=== PATIENT | male | born 1990 | race Caucasian/White ===

== ENCOUNTER 2016-12-24 14:30 | Emergency (ER) | payer MEDICAID, OTHER ==
[~2016-12-24] VITALS: Ht 172.7 cm; Wt 81.8 kg
[2016-12-24 14:36] VITALS: Ht 172.7 cm; Wt 81.8 kg
[2016-12-24] MEDS ORDERED: ONDANSETRON 4 MG INJ IV STA (14:42)
[2016-12-24] MEDS ORDERED: SOD CHLORIDE 0.9% 1,000 ML IV STA (14:42)
[2016-12-24] MEDS ORDERED: PHEN64.8 PO (14:53)
[2016-12-24 15:04] LABS: ADD SCAN DIFF NO
[2016-12-24 15:11] LABS: BASOPHILS % 0.5 % (0.0-2.0); EOSINOPHILS # 0.2 10^3/ul (0.0-0.5); EOSINOPHILS % 3.3 % (0.0-7.0); HEMATOCRIT 44.8 % (42.0-52.0); HEMOGLOBIN 15.5 g/dl (14.0-18.0); LYMPHOCYTES # 1.6 10^3/ul (0.8-2.9); MEAN CORPUSCULAR HEMOGLOBIN 30.9 pg (29.0-33.0); MEAN CORPUSCULAR HGB CONC 34.6 g/dl (32.0-37.0); MEAN CORPUSCULAR VOLUME 89.4 fl (82.0-101.0); MEAN PLATELET VOLUME 9.4 fl (7.4-10.4); MONOCYTE # 0.5 10^3/ul (0.3-0.9); MONOCYTES % 7.1 % (0.0-11.0); NEUTROPHIL # 4.1 10^3/ul (1.6-7.5); NEUTROPHILS % 63.8 % (39.0-77.0); PLATELET COUNT 299 10^3/UL (140-415); RED BLOOD COUNT 5.01 10^6/ul (4.70-6.10); RED CELL DISTRIBUTION WIDTH 12.8 % (11.5-14.5); WHITE BLOOD COUNT 6.4 10^3/ul (4.8-10.8)
[2016-12-24 15:27] LABS: ALBUMIN 4.4 g/dl (3.3-4.9)
[2016-12-24 15:28] LABS: CHLORIDE 104 mmol/L (97-110); POTASSIUM 3.6 mmol/L (3.5-5.1); SODIUM 144 mmol/L (135-144)
[2016-12-24 15:30] LABS: ANION GAP 21 (8-16); ASPARTATE AMINO TRANSFERASE 33 IU/L (15-46); BILIRUBIN,INDIRECT 0.1 mg/dl (0-1.1); BILIRUBIN,TOTAL 0.1 mg/dl (0.2-1.3); CARBON DIOXIDE 23 mmol/L (21-31); CREATININE 0.84 mg/dl (0.61-1.24)
[2016-12-24 15:31] LABS: ALANINE AMINOTRANSFERASE 29 IU/L (13-69); ALBUMIN/GLOBULIN RATIO 1.46; ALKALINE PHOSPHATASE 78 IU/L (42-121); BLOOD UREA NITROGEN 11 mg/dl (7-20); GLUCOSE 131 mg/dl (70-220); TOTAL PROTEIN 7.4 g/dl (6.1-8.1)
[2016-12-24 15:40] LABS: TROPONIN-I < 0.012 ng/ml (0.00-0.12)
--- NOTE | 2016-12-24 16:28 | RADRPT ---
PROCEDURE: CT Brain without contrast. CLINICAL INDICATION: Headaches status post head trauma TECHNIQUE: A CT of the brain was performed on a GE [employer] 64-slice CT scanner utilizing axial imaging from the skull base through the vertex without IV contrast. Multiplanar reformatted images were made. Images were reviewed on a PACS workstation. The CTDIvol is 45.01 mGy and the DLP is 720 .23 mGycm. One of the following 3 dose reduction techniques were used: Automated exposure control; adjustment of the mA and/or kV according to patient size; or use of iterative reconstruction technique. COMPARISON: None available FINDINGS: There is no intracranial hemorrhage, mass effect, or midline shift. No extra-axial fluid collection is seen. The ventricles and sulci are normal in size and configuration. The density of the brain is normal, and the pierce white matter differentiation appears well-preserved. The visualized scalp and calvarium are normal. The bilateral orbits are normal. The bilateral para nasal sinuses are remarkable for mild bilateral ethmoid and sphenoid sinus chronic mucosal thickenin g. IMPRESSION: 1. No evidence of acute intracranial infarcts, hemorrhage, or acute intracranial pathology. 2. Normal noncontrast head CT. RPTAT: HD .Juanita Olivas MD, Date Time Electronically viewed and signed by .Juanita Olivas MD, MD on 12/24/2016 16:27 .C/
[2016-12-24] MEDS ORDERED: KETOROLAC 15 MG INJ IV STA (17:09)
[2016-12-24] MEDS ORDERED: PHEN100C PO (17:16)
[2016-12-24] MEDS ORDERED: PHENYTOIN 100 MG CAP PO ONE (17:30)
[2016-12-24 18:22] VITALS: BP 124/74; PULSE 88; RESP 18
--- NOTE | 2016-12-24 19:56 | ERD ---
ER Documentation Chief Complaint Date/Time DATE: 12/24/16 TIME: 19:53 Chief Complaint BROUGHT IN VIA EMS DUE TO SEIZURE ACTIVITY HPI 26-year-old man brought in by EMS for tonic-clonic seizure. Patient has about 4 year history of seizure disorder and states he has been using phenytoin daily as prescribed, states yesterday he had another tonic-clonic seizure and injured his forehead. Patient states prior to yesterday's episode last seizure was 4 years ago. He has had no recent fevers or chills, no chest pain or shortness of breath, no loss of bowel or bladder control. Patient was postictal at the scene and required restraint was transported here without further complications. ROS All systems reviewed and are negative except as per history of present illness. Medications Home Meds Active Scripts Phenytoin* Sodium Extended (Dilantin*) 100 Mg Capsule, 100 MG PO BID, #60 CAP Prov:TOMAS BOSS MD 12/24/16 Reported Medications Phenobarbital* (Phenobarbital*) 64.8 Mg Tablet, 64.8 MG PO BID, TAB 12/24/16 Allergies Allergies: Coded Allergies: No Known Allergy (Unverified , 12/24/16) PMhx/Soc Seizure disorder Medical and Surgical Hx: pt denies Surgical Hx Hx Neurological Disorder: Yes (EPILEPSY) Hx Alcohol Use: No Hx Substance Use: No Hx Tobacco Use: No Smoking Status: Never smoker FmHx Family History: No diabetes Physical Exam Vitals Vital Signs Date Time Temp Pulse Resp B/P Pulse Ox O2 Delivery O2 Flow Rate FiO2 12/24/16 18:22 88 18 124/74 99 Room Air 12/24/16 17:00 92 18 130/79 99 Room Air 12/24/16 14:36 98.1 119 18 128/80 95 Physical Exam GENERAL: Well-developed, well-nourished, initially agitated and postictal HEENT: Positive forehead abrasion from yesterday's episode, no cervical spine tenderness or step-off deformities, no goiter, no jaundice or icterus, extraocular movements intact without pain. No submandibular induration, and no pharyngeal erythema NEURO: Alert and oriented 1, cranial nerves II through XII intact bilaterally, pupils equal round reactive to light, no focal deficits or facial asymmetry, sensation intact distally Strength 5/5 in upper and lower extremities bilaterally CARDIAC: Regular rate and rhythm, no murmurs rubs or gallops LUNGS: Clear bilaterally no wheezing crackles or stridor ABDOMEN: Soft nontender, no guarding, no rigidity, no rebound, no psoas sign no obturator sign. Normoactive bowel sounds SKIN: Warm and dry to touch, no abrasions, contusions, or hematomas, no lacerations, no ecchymosis, no target lesions, and without ulcers EXTREMITIES: No clubbing cyanosis or edema, calves are bilaterally symmetrical, no Homans sign, no popliteal cord sign. Distal pulses equal and bilateral PSYCH: Agitated Result Diagram: 12/24/16 1500 12/24/16 1500 Results 24 hrs Laboratory Tests Test 12/24/16 15:00 White Blood Count 6.410^3/ul Red Blood Count 5.0110^6/ul Hemoglobin 15.5g/dl Hematocrit 44.8% Mean Corpuscular Volume 89.4fl Mean Corpuscular Hemoglobin 30.9pg Mean Corpuscular Hemoglobin Concent 34.6g/dl Red Cell Distribution Width 12.8% Platelet Count 61057^3/UL Mean Platelet Volume 9.4fl Neutrophils % 63.8% Lymphocytes % 25.0% Monocytes % 7.1% Eosinophils % 3.3% Basophils % 0.5% Nucleated Red Blood Cells % 0.0/100WBC Neutrophils # 4.110^3/ul Lymphocytes # 1.610^3/ul Monocytes # 0.510^3/ul Eosinophils # 0.210^3/ul Basophils # 0.010^3/ul Nucleated Red Blood Cells # 0.010^3/ul Sodium Level 144mmol/L Potassium Level 3.6mmol/L Chloride Level 104mmol/L Carbon Dioxide Level 23mmol/L Anion Gap 21 Blood Urea Nitrogen 11mg/dl Creatinine 0.84mg/dl Glucose Level 131mg/dl Calcium Level 9.0mg/dl Total Bilirubin 0.1mg/dl Direct Bilirubin 0.00mg/dl Indirect Bilirubin 0.1mg/dl Aspartate Amino Transf (AST/SGOT) 33IU/L Alanine Aminotransferase (ALT/SGPT) 29IU/L Alkaline Phosphatase 78IU/L Troponin I < 0.012ng/ml Total Protein 7.4g/dl Albumin 4.4g/dl Globulin 3.00g/dl Albumin/Globulin Ratio 1.46 Lipase 38U/L Current Medications Medications (Trade) Dose Ordered Sig/Deng Route PRN Reason Start Time Stop Time Status Last Admin Dose Admin Sodium Chloride (NS) 1,000 ml @ 1,000 mls/hr Q1H STAT IV 12/24/16 14:42 12/24/16 15:41 DC 12/24/16 15:05 Ondansetron HCl (Zofran Inj) 4 mg ONCE STAT IV 12/24/16 14:42 12/24/16 14:44 DC 12/24/16 15:05 Ketorolac Tromethamine (Toradol) 15 mg ONCE STAT IV 12/24/16 17:09 12/24/16 17:18 DC 12/24/16 17:33 Phenytoin (Dilantin) 300 mg ONCE ONCE PO 12/24/16 17:30 12/24/16 17:31 DC 12/24/16 17:33 Procedures/MDM IV line was established patient was placed on monitor and storage bin tender rhythm strip revealed a sinus rhythm at about 80 bpm with upright P and T waves. Patient was afebrile, administered 1 L normal saline intravenously, Toradol 50 mg IV for headache and Zofran 4 mg IV for nausea. Patient also received phenytoin 300 mg p.o. CBC and electrolytes are normal, liver function tests were normal, troponin was negative. CT scan of the brain was performed that was negative for acute bleed mass or shift. Mental status improved back to baseline after above interventions. Patient required no sedation or restraints. Differential diagnoses considered, included but not limited to acute coronary syndrome, pulmonary embolism, aortic dissection, abdominal aortic aneurysm, sepsis, stroke, meningitis, encephalitis, pneumonia, appendicitis, cholecystitis , bowel obstruction, pyelonephritis, nephrolithiasis, cystitis, as well as metabolic, hematologic, and electrolyte abnormalities. As well as abscess, cellulitis, fractures, and dislocations. Patient feels much better at this time, and vital signs are normal, symptoms have improved. I did give strict instructions to return to the ED if symptoms continue or worsen, patient will otherwise follow-up with primary care physician. Patient understood instructions and agreed to plan. Departure Diagnosis: Primary Impression: Breakthrough seizure Condition: Good Patient Instructions: Seizure, Recurrent [Adult] Referrals: TANYA GILMORE MD, YURIY MD ZOHRABIAN, DAVID MD Dec 24, 2016 19:56
== END 2016-12-24 18:23 | disposition home or self-care (01) ==
LOC: E/R 14:30
DX: G40.409 Other generalized epilepsy and epileptic syndromes, not intractable, without status epilepticus (principal)
CPT/HCPCS: 70450; 80053; 83690; 84484; 85025; J1885; J2405; J7030; Z7610; 36415; 96374; 96375